=== PATIENT | male | born 1935 | race Caucasian/White ===

== ENCOUNTER 2020-02-27 19:53 | Inpatient (IN) | payer MEDICARE ==
[~2020-02-27] VITALS: Ht 180.3 cm; Wt 74.8 kg
--- NOTE | ~2020-02-27 | CON ---
[address] [address] CONSULTATION Name: DEYVI HILL KYREE Room: [address] IN .R.#: [id number] Admission: 02/27/20 Attend Phys: Zafar Metz MD Discharge: Date of : 39 Report #: [id number] THIS REPORT FOR: //name// cc: Julian Gongora MD, Robert MD ~ THIS REPORT FOR: //name// CC: Zafar Gongora DATE OF SERVICE: 02/29/2020 REQUESTING PHYSICIAN: Dr. Villar. INDICATION FOR CONSULTATION: Pneumonia. HISTORY OF PRESENT ILLNESS: This is an 84-year-old gentleman with past medical history includes a history of coronary artery disease. There is no known history of COPD or congestive heart failure. The patient was recently admitted to [facility] and was treated with antibiotics for pneumonia. I do not have details available. According to the patient, COVID-19 was not detected. The patient was subsequently discharged on oral antibiotics. The patient states that he picked him up at [employer] in [place] and in fact called one of the [facility] in [place] and they did not have a record of these prescriptions; however, they were able to look up a prescription for Zithromax and Augmentin, which [facility] [place] on the . The patient is not known to be previously on supplemental oxygen, now again had a fever up to 102.4 degrees Celsius. He also was short of breath and was coughing, although not bringing up much sputum. Therefore, he was admitted here again through the Emergency Room. He was continuing to complain of fever and chills. There is only mild swelling of lower extremities. The patient is currently requiring 12 liters of oxygen to maintain O2 saturation between 88% to 91%. Note that he is not known to be previously on supplemental oxygen. I asked him 12 other questions for review of systems, the patient answered to the negative except as mentioned above. PAST MEDICAL HISTORY: Coronary artery disease, myocardial infarctions x 2, 7 stents, gastroesophageal reflux disease, hypertension, hyperlipidemia, chronic kidney disease is mentioned on the records. The patient, however, has a normal creatinine, hyperlipidemia. I do not have a previous measure of his left ventricular ejection fraction available at this time. SOCIAL HISTORY: There is no known history of smoking, ethanol abuse or drug abuse. CURRENT MEDICATIONS: [place] [address] CONSULTATION Name: DEYVI HILL KYREE Room: [address]#: [id number] Admission: 02/27/20 Attend Phys: Zafar Metz MD Discharge: Date of : 37 Report #: [id number] HOME MEDICATIONS: Also List in [facility] reviewed. Also as above, the patient was prescribed a Z-SAMREEN as well as Augmentin on the . ALLERGIES: No known drug allergies. FAMILY HISTORY: There is no pertinent family history. PHYSICAL EXAMINATION: GENERAL: He is fully awake; however, is able to provide only a limited history. VITAL SIGNS: He has a pulse of 69 and a blood pressure of 131/57. He is saturating between 91% to 88%. He is on 12 liters nasal cannula and his oxygen is being titrated. His respiratory rate is elevated to 28. He is afebrile now with a temperature of 36.7, however, yesterday, he did have a low-grade fever up to 38.4. HEENT: Head is normocephalic and atraumatic. NECK: Does not show raised JVP, asymmetry, mass or lymph nodes. CHEST: Symmetrical expansion on inspection and palpation. On auscultation, there is some accessory muscle use. He does appear to be short of breath. He has a high respiratory rate. Breath sounds, however, are bilaterally equal, although decreased. I do not hear any added sounds. HEART: Regular. There is no murmur. ABDOMEN: Soft and nontender. EXTREMITIES: Lower extremities show trace edema. There is no calf tenderness. SKIN: Dry and intact. NEUROLOGICAL: Moves all extremities bilaterally equally and spontaneously with no focal deficit identified. LABORATORY DATA: The patient's chest x-ray is reviewed and compared with the chest x-ray performed 2 days ago. There are extensive bilateral atypical looking infiltrates. A second chest x-ray looks worse, likely due to the development of increase in pulmonary vascular congestion on the second chest x-ray. The patient's CTA chest films as well as report are also reviewed. There are no additional pertinent findings. The patient's CBC as well as chemistries are in [facility] reviewed. Potassium was decreased this morning, is reviewed. Coagulation studies from the in [facility] reviewed. Arterial blood gas consistent with acute type 1 respiratory failure in [facility] reviewed. COVID-19 antigen was negative. PCR is pending. Nasal swab for methicillin-resistant Staphylococcus aureus is pending. ASSESSMENT AND PLAN: 1. Acute hypoxemic respiratory failure. The patient does have extensive bilateral infiltrates, which is the etiology of his acute respiratory failure, also a second chest x-ray likely shows some increase in pulmonary vascular congestion as well. At this time, we will continue to titrate his oxygen. We will consider use of a BiPAP, increases in his respiratory status declines. [facility] [address] [address] CONSULTATION Name: DEYVI HILL KYREE Room: [address] IN .R.#: [id number] Admission: 02/27/20 Attend Phys: Zafar Metz MD Discharge: Date of : 39 Report #: [id number] 2. Pulmonary infiltrates/pneumonia as above. The patient is noted to have been prescribed Augmentin and Z-SAMREEN on the , he says he was taking the medications he was prescribed. I am not aware of the medication he received in [place]. Considering this, use of antibiotics and still developed mental or persistence of extensive infiltrates, I decided to go ahead and broaden his antibiotic coverage. He currently is on Zosyn. I added Levaquin and vancomycin. We will follow and will narrow antibiotic coverage as indicated down the line. The patient has limited peripheral IV access. It is possible that he needs central access. 3. Bronchospasm despite a lack of previous history of obstructive lung disease. I feel this is a component of this as well. The patient is on Solu-Medrol as well as nebulized bronchodilators. I will continue the same. 4. Fluid overload. I would like to give him some Lasix; however, would like to replace the potassium first. His potassium is already being replaced. We will go ahead and obtain a basic metabolic profile and see where we stand. If his potassium was returned to the normal range, I intend to give him some Lasix. 5. Evaluation for thromboembolic phenomena. He did not have pulmonary emboli detected on the CTA chest. I will obtain a D-dimer. In case, it is elevated, I will still do venous Dopplers. 6. Gastrointestinal prophylaxis. He is on Protonix. 7. Clostridium difficile prophylaxis. He is on Florastor. 8. Deep vein thrombosis prophylaxis, he is on prophylactic dose of Lovenox. 9. History of coronary artery disease. Thanks for this consultation. By: [id number] [id number] Jean MD /nt
[2020-02-27 19:55] VITALS: BP 143/60
[2020-02-27 20:35] LABS: HEMOGLOBIN 12.3 gm/dL (14.0-18.0); MCH 30.1 pg (26.0-34.0); MCHC 35.3 g/dL (28.0-37.0); MCV 85.4 fL (80.0-100.0); MPV 7.1 fl. (7.2-11.1); NUCLEATED RBCS 0 /100WBC; PLATELET COUNT* 225 thou/uL (150-400); RDW-CV 13.2 % (10.5-14.5); WBC 6.7 thou/uL (4.0-11.0)
[2020-02-27] MEDS ORDERED: LIPITOR 20 MG T20 M1 PO (20:42)
[2020-02-27] MEDS ORDERED: ASA81BEC PO (20:42)
[2020-02-27] MEDS ORDERED: HYDRALAZINE 2525 MG PO (20:43)
[2020-02-27] MEDS ORDERED: PLAVIX 75 MG TA75 MG PO (20:43)
[2020-02-27] MEDS ORDERED: NITROSTAT0.4 M1 SUBLING (20:44)
[2020-02-27] MEDS ORDERED: TOPROL XL50 MG PO (20:44)
[2020-02-27 20:45] LABS: INR 1.1; PROTIME 11.4 Seconds (9.20-11.50)
[2020-02-27] MEDS ORDERED: VITAMIN D31250 MC1 PO (20:45)
[2020-02-27] MEDS ORDERED: ISOSORBIDE MONO30 M1 PO (20:46)
[2020-02-27 20:51] LABS: CALCIUM 7.4 mg/dL (8.5-10.1); CREATININE 1.3 mg/dL (0.6-1.3); POTASSIUM 3.5 mmol/L (3.5-5.1)
[2020-02-27 20:56] LABS: ALBUMIN 2.6 g/dL (3.4-5.0); MAGNESIUM 1.9 mg/dL (1.8-2.4); TOTAL BILIRUBIN 1.4 mg/dL (<0.1-1.0); TOTAL PROTEIN 6.8 g/dL (6.4-8.2)
[2020-02-27 21:00] LABS: ABSOLUTE LYMPHOCYTES 0.3 thou/uL (0.8-5.3); ABSOLUTE MONOCYTES 0.3 thou/uL (0.0-1.2); ABSOLUTE NEUTROPHILS 6.2 thou/uL (1.6-8.1)
[2020-02-27 21:01] LABS: PLATELET ESTIMATE ADEQUATE
[2020-02-27 21:51] LABS: PCO2 31.5 mmHg (35.0-45.0); PO2 79.4 mmHg (75.0-100.0); pH 7.462 (7.340-7.450)
[2020-02-27 22:52] LABS: URINE BILIRUBIN NEGATIVE (Negative); URINE BLOOD TRACE (Negative); URINE CLARITY CLEAR; URINE COLOR YELLOW; URINE GLUCOSE-RANDOM NEGATIVE (Negative); URINE KETONES NEGATIVE (Negative); URINE LEUKOCYTES-REFLEX NEGATIVE (Negative); URINE NITRITE-REFLEX NEGATIVE (Negative); URINE PROTEIN NEGATIVE (Negative); URINE SPECIFIC GRAVITY <= 1.005 (1.005-1.030); URINE UROBILINOGEN 0.2 E.U./dl (0.2-1.0)
[2020-02-27 23:57] VITALS: BP 131/57
[2020-02-28 00:06] VITALS: BP 119/51
[2020-02-28 04:00] VITALS: BP 149/65
[2020-02-28 07:50] VITALS: BP 133/57
[2020-02-28 08:18] LABS: HEMOGLOBIN 12.6 gm/dL (14.0-18.0); MCH 29.8 pg (26.0-34.0); MCHC 34.1 g/dL (28.0-37.0); MCV 87.3 fL (80.0-100.0); RBC 4.24 mil/uL (4.50-6.00); RDW-CV 13.5 % (10.5-14.5); WBC 7.6 thou/uL (4.0-11.0)
[2020-02-28 08:24] LABS: CALCIUM 7.2 mg/dL (8.5-10.1); MAGNESIUM 1.9 mg/dL (1.8-2.4); POTASSIUM 3.4 mmol/L (3.5-5.1)
--- NOTE | 2020-02-28 11:51 | EKG ---
[place] [address] ELECTROCARDIOGRAM REPORT Name: LIZWILLIEAISLINN ADORNO Room: [address] ADM IN ..#: [id number] Admission: 02/27/20 Attend Phys: Zafar Metz, Discharge: Date of : 39 Date of Service: 02/27/201999 Report #: [id number] THIS REPORT FOR: //name// 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[place] : 1935 Requested By: Rosanne Field Order Number: [id number] MD: Elio Kendall Measurements Intervals [place] Rate: 77 P: -64 PA: 242 QRS: -52 QRSD: 120 T: 90 QT: 395 QTc: 448 Interpretive Statements Sinus or ectopic atrial rhythm Prolonged PA interval Probable left ventricular hypertrophy with repolarization changes Anterior Q waves, possibly due to LVH Baseline wander in lead(s) II,III,aVF No previous ECG available for comparison Electronically Signed On 02-28-2020 11:51:32 CDT by Elio Kendall [email or web address] <ELECTRONICALLY SIGNED> By: Elio Kendall MD, FACC 02/28/20 1151 99 99 Elio Kendall MD, FAC /EPI
[2020-02-28 12:00] VITALS: BP 160/63
[2020-02-28 16:00] VITALS: BP 125/48
[2020-02-28 20:00] VITALS: BP 130/65
[2020-02-29] VITALS: BP 126/57
[2020-02-29 04:00] VITALS: BP 122/46
[2020-02-29 05:22] LABS: ABSOLUTE LYMPHOCYTES 0.3 thou/uL (0.8-5.3); ABSOLUTE MONOCYTES 0.2 thou/uL (0.0-1.2); ABSOLUTE NEUTROPHILS 9.9 thou/uL (1.6-8.1); BASOPHILS 0.1 %; HEMATOCRIT 34.1 % (42.0-52.0); HEMOGLOBIN 12.1 gm/dL (14.0-18.0); LYMPHOCYTES 2.5 %; MCH 30.2 pg (26.0-34.0); MCHC 35.5 g/dL (28.0-37.0); MCV 85.2 fL (80.0-100.0); MPV 7.5 fl. (7.2-11.1); NUCLEATED RBCS 0 /100WBC; PLATELET COUNT* 253 thou/uL (150-400); POLYS 95.4 %; RDW-CV 13.4 % (10.5-14.5); WBC 10.4 thou/uL (4.0-11.0)
[2020-02-29 05:36] LABS: CALCIUM 7.1 mg/dL (8.5-10.1); CREATININE 0.9 mg/dL (0.6-1.3); MAGNESIUM 2.1 mg/dL (1.8-2.4)
[2020-02-29 05:42] LABS: POTASSIUM 2.7 mmol/L (3.5-5.1)
[2020-02-29 09:30] VITALS: BP 131/57
[2020-02-29 12:00] VITALS: BP 132/50
[2020-02-29 15:20] LABS: CALCIUM 7.3 mg/dL (8.5-10.1); MAGNESIUM 2.3 mg/dL (1.8-2.4); POTASSIUM 3.2 mmol/L (3.5-5.1)
[2020-02-29 15:43] LABS: APTT 31.5 Seconds (25.0-31.3); INR 1.1; PROTIME 11.3 Seconds (9.20-11.50)
[2020-02-29 16:00] VITALS: BP 125/56
[2020-02-29 20:00] VITALS: BP 120/54
[2020-03-01 00:02] VITALS: BP 127/46
[2020-03-01 04:45] VITALS: BP 130/50
[2020-03-01 05:54] LABS: HEMATOCRIT 36.7 % (42.0-52.0); HEMOGLOBIN 12.6 gm/dL (14.0-18.0); MCH 29.5 pg (26.0-34.0); MCHC 34.3 g/dL (28.0-37.0); MCV 86.2 fL (80.0-100.0); MPV 7.1 fl. (7.2-11.1); RBC 4.26 mil/uL (4.50-6.00); RDW-CV 13.3 % (10.5-14.5); WBC 16.2 thou/uL (4.0-11.0)
[2020-03-01 06:19] LABS: ALBUMIN 2.2 g/dL (3.4-5.0); CALCIUM 7.4 mg/dL (8.5-10.1); CREATININE 1.2 mg/dL (0.6-1.3); POTASSIUM 3.1 mmol/L (3.5-5.1); TOTAL BILIRUBIN 1.5 mg/dL (<0.1-1.0); TOTAL PROTEIN 6.7 g/dL (6.4-8.2)
[2020-03-01 10:58] VITALS: BP 150/68
[2020-03-01 12:00] VITALS: BP 132/57
--- NOTE | 2020-03-01 16:13 | 2DMMODE ---
[place] [address] 2 D/M-MODE ECHOCARDIOGRAM Name: DEYVI HILL [place] Room: [address] IN [facility]#: [id number] Admission: 02/27/20 Attend Phys: Zafar Metz, Discharge: Date of : 39 Date of Service: 03/01/20 1613 Report #: [id number] THIS REPORT FOR: cc: Julian Gongora MD, Robert MD Liston, Michael J. MD [facility] ~ APPROVED REPORT Study performed: 03/01/2020 13:52:54 EXAM: Comprehensive 2D, Doppler, and color-flow Echocardiogram Patient Location: In-Patient Room #: 200 Status: routine BSA: 1.93 HR: 74 bpm BP: 132/57 mmHg Rhythm: NSR Other Information Study Quality: Good Indications Dyspnea 2D Dimensions IVSd: 9.38 (7-11mm) LVOT Diam: 19.12 (18-24mm) LVDd: 46.52 mm PWd: 8.96 (7-11mm) Ascending Ao: 32.08 (22-36mm) LVDs: 26.53 (25-40mm) Aortic Root: 34.81 mm Volumes Left Atrial Volume (Systole) LA ESV Index: 29.80 mL/m2 Aortic Valve AoV Peak Dave.: 1.55 m/s AO Peak Gr.: 9.64 mmHg LVOT Max P.66 mmHg AO Mean Gr.: 5.00 mmHg LVOT Mean P.57 mmHg LVOT Max V: 1.38 m/s AO V2 VTI: 34.65 cm LVOT Mean V: 0.86 m/s GLORIA (VTI): 2.85 cm2 LVOT V1 VTI: 34.38 [place] [address] 2 D/M-MODE ECHOCARDIOGRAM Name: DEYVI HILL [place] Room: [address] IN ..#: [id number] Admission: 02/27/20 Attend Phys: Zafar Metz, Discharge: Date of : 39 Date of Service: 03/01/20 1613 Report #: [id number] Mitral Valve E/A Ratio: 0.99 MV Decel. Time: 167.98 ms MV E Max Dave.: 1.11 m/s MV PHT: 48.71 ms MVA (PHT): 4.52 cm2 TDI E/Lateral E': 12.33 E/Medial E': 11.10 Medial E' Dave.: 0.10 m/s Lateral E' Dave.: 0.09 m/s Pulmonary Valve PV Peak Dave.: 1.10 m/s PV Peak Gr.: 4.87 mmHg Tricuspid Valve RAP Estimate: 5.00 mmHg TR Peak Gr.: 40.39 mmHg RVSP: 45.00 mmHg PA Pressure: 45.00 mmHg Left Ventricle The left ventricle is normal size. There is normal LV segmental wall motion. There is normal left ventricular wall thickness. Left ventricular systolic function is normal. LVEF is 60-65%. Transmitral Doppler flow pattern suggests impaired LV relaxation. Right Ventricle The right ventricle is normal size. The right ventricular systolic function is normal. Atria Left atrium is mildly dilated. Right atrium is mildly dilated. Aortic Valve The aortic valve is normal in structure. No aortic regurgitation is present. There is no aortic valvular stenosis. Mitral Valve The mitral valve is normal in structure. Mild mitral regurgitation. No evidence of mitral valve stenosis. Tricuspid Valve The tricuspid valve is normal in structure. Mild tricuspid regurgitation. The RVSP is 45-[place] [address] 2 D/M-MODE ECHOCARDIOGRAM Name: DEYVI HILL [place] Room: [address]#: [id number] Admission: 02/27/20 Attend Phys: Zafar Metz, Discharge: Date of : 39 Date of Service: 03/01/20 1613 Report #: [id number] Pulmonic Valve The pulmonary valve is normal in structure. Trace pulmonic regurgitation. Great Vessels The aortic root is normal in size. IVC is not visualized. Pericardium There is no pericardial effusion. <Conclusion> The left ventricle is normal size. There is normal left ventricular wall thickness. Left ventricular systolic function is normal. LVEF is 60-65%. Transmitral Doppler flow pattern suggests impaired LV relaxation. Left atrium is mildly dilated. Right atrium is mildly dilated. Mild mitral regurgitation. Mild tricuspid regurgitation. The RVSP is 45-50 mmHg. <ELECTRONICALLY SIGNED> By: Romaine Raya MD, FACC 03/01/20 1613 1613 1613 Romaine Raya MD, FACC /INF
[2020-03-01 17:06] LABS: CALCIUM 7.4 mg/dL (8.5-10.1); POTASSIUM 3.4 mmol/L (3.5-5.1)
[2020-03-01 17:27] VITALS: BP 119/59
[2020-03-01 20:00] VITALS: BP 142/74
[2020-03-02] VITALS: BP 134/62
[2020-03-02 04:00] VITALS: BP 139/62
[2020-03-02 05:34] LABS: HEMATOCRIT 34.6 % (42.0-52.0); HEMOGLOBIN 12.3 gm/dL (14.0-18.0); MCH 30.4 pg (26.0-34.0); MCHC 35.7 g/dL (28.0-37.0); MCV 85.2 fL (80.0-100.0); MPV 6.9 fl. (7.2-11.1); NUCLEATED RBCS 0 /100WBC; PLATELET COUNT* 305 thou/uL (150-400); RBC 4.06 mil/uL (4.50-6.00); RDW-CV 13.2 % (10.5-14.5); WBC 10.1 thou/uL (4.0-11.0)
[2020-03-02 06:24] LABS: ALBUMIN 2.4 g/dL (3.4-5.0); CALCIUM 7.4 mg/dL (8.5-10.1); CREATININE 1.2 mg/dL (0.6-1.3); MAGNESIUM 2.1 mg/dL (1.8-2.4); POTASSIUM 3.6 mmol/L (3.5-5.1); TOTAL BILIRUBIN 1.6 mg/dL (<0.1-1.0)
[2020-03-02 07:14] LABS: ABSOLUTE LYMPHOCYTES 0.1 thou/uL (0.8-5.3); ABSOLUTE MONOCYTES 0.4 thou/uL (0.0-1.2); ABSOLUTE NEUTROPHILS 9.6 thou/uL (1.6-8.1); ANISOCYTOSIS 1+; PLATELET ESTIMATE ADEQUATE; POIKILOCYTOSIS 1+
[2020-03-02 08:00] VITALS: BP 130/70
[2020-03-02 12:00] VITALS: BP 122/57
[2020-03-02 16:00] VITALS: BP 139/63
[2020-03-02 19:50] VITALS: BP 138/77
[2020-03-03] VITALS: BP 123/62
[2020-03-03 04:04] VITALS: BP 157/63
[2020-03-03 05:09] LABS: ABSOLUTE LYMPHOCYTES 0.4 thou/uL (0.8-5.3); ABSOLUTE MONOCYTES 0.5 thou/uL (0.0-1.2); ABSOLUTE NEUTROPHILS 7.8 thou/uL (1.6-8.1); HEMATOCRIT 36.2 % (42.0-52.0); HEMOGLOBIN 12.7 gm/dL (14.0-18.0); LYMPHOCYTES 4.1 %; MCHC 35.1 g/dL (28.0-37.0); MCV 85.3 fL (80.0-100.0); MPV 7.1 fl. (7.2-11.1); NUCLEATED RBCS 0 /100WBC; PLATELET COUNT* 311 thou/uL (150-400); POLYS 89.9 %; RBC 4.24 mil/uL (4.50-6.00); WBC 8.6 thou/uL (4.0-11.0)
[2020-03-03 05:51] LABS: ALBUMIN 2.3 g/dL (3.4-5.0); CALCIUM 7.5 mg/dL (8.5-10.1); MAGNESIUM 2.4 mg/dL (1.8-2.4); POTASSIUM 3.6 mmol/L (3.5-5.1); TOTAL BILIRUBIN 1.4 mg/dL (<0.1-1.0); TOTAL PROTEIN 6.6 g/dL (6.4-8.2)
[2020-03-03 08:00] VITALS: BP 141/63
[2020-03-03 13:17] VITALS: BP 127/88
[2020-03-03 17:16] VITALS: BP 111/48
[2020-03-03 19:50] VITALS: BP 143/72
[2020-03-04] VITALS: BP 114/78
[2020-03-04 04:00] VITALS: BP 141/67
[2020-03-04 08:00] VITALS: BP 146/72
[2020-03-04 13:20] LABS: ABSOLUTE LYMPHOCYTES 0.6 thou/uL (0.8-5.3); ABSOLUTE MONOCYTES 0.4 thou/uL (0.0-1.2); ABSOLUTE NEUTROPHILS 6.6 thou/uL (1.6-8.1); BASOPHILS 0.1 %; EOSINOPHILS 0.1 %; HEMATOCRIT 38.1 % (42.0-52.0); MCH 29.5 pg (26.0-34.0); MCHC 34.1 g/dL (28.0-37.0); MCV 86.4 fL (80.0-100.0); MONOCYTES 5.6 %; MPV 8.2 fl. (7.2-11.1); NUCLEATED RBCS 0 /100WBC; PLATELET COUNT* 338 thou/uL (150-400); POLYS 86.2 %; RBC 4.42 mil/uL (4.50-6.00); WBC 7.6 thou/uL (4.0-11.0)
[2020-03-04 13:23] LABS: CALCIUM 7.5 mg/dL (8.5-10.1); MAGNESIUM 2.3 mg/dL (1.8-2.4); POTASSIUM 3.3 mmol/L (3.5-5.1)
[2020-03-04 13:59] VITALS: BP 130/72
[2020-03-04 17:00] VITALS: BP 144/69
[2020-03-04 20:00] VITALS: BP 134/76
[2020-03-05] VITALS (7 sets, daily range): BP systolic 100–162; BP diastolic 59–76
[2020-03-05 04:45] LABS: HEMATOCRIT 38.1 % (42.0-52.0); HEMOGLOBIN 13.1 gm/dL (14.0-18.0); MCH 29.7 pg (26.0-34.0); MCHC 34.3 g/dL (28.0-37.0); MCV 86.4 fL (80.0-100.0); MPV 7.1 fl. (7.2-11.1); NUCLEATED RBCS 0 /100WBC; PLATELET COUNT* 336 thou/uL (150-400); RBC 4.41 mil/uL (4.50-6.00); WBC 8.1 thou/uL (4.0-11.0)
[2020-03-05 06:03] LABS: ALBUMIN 2.5 g/dL (3.4-5.0); CALCIUM 7.8 mg/dL (8.5-10.1); CREATININE 1.1 mg/dL (0.6-1.3); MAGNESIUM 2.2 mg/dL (1.8-2.4); TOTAL BILIRUBIN 1.3 mg/dL (<0.1-1.0); TOTAL PROTEIN 6.3 g/dL (6.4-8.2)
[2020-03-05 07:46] LABS: ABSOLUTE EOSINOPHILS 0.1 thou/uL (0.0-0.7); ABSOLUTE LYMPHOCYTES 0.6 thou/uL (0.8-5.3); ABSOLUTE MONOCYTES 0.3 thou/uL (0.0-1.2); METAMYELOCYTES 2 %
[2020-03-05 07:49] LABS: PLATELET ESTIMATE ADEQUATE
[2020-03-06 00:25] VITALS: BP 128/75
[2020-03-06 04:30] VITALS: BP 180/60
[2020-03-06 05:00] VITALS: BP 150/63
[2020-03-06 08:30] VITALS: BP 126/65
[2020-03-06 12:00] VITALS: BP 116/60
[2020-03-06 20:00] VITALS: BP 127/67
[2020-03-07] VITALS: BP 126/61
[2020-03-07 04:02] VITALS: BP 146/68
[2020-03-07 05:57] LABS: HEMATOCRIT 38.8 % (42.0-52.0); HEMOGLOBIN 13.3 gm/dL (14.0-18.0); MCH 29.6 pg (26.0-34.0); MCHC 34.4 g/dL (28.0-37.0); MCV 86.1 fL (80.0-100.0); MPV 6.9 fl. (7.2-11.1); RBC 4.5 mil/uL (4.50-6.00); RDW-CV 12.9 % (10.5-14.5); WBC 8.6 thou/uL (4.0-11.0)
[2020-03-07 06:02] LABS: CALCIUM 7.7 mg/dL (8.5-10.1); POTASSIUM 3.9 mmol/L (3.5-5.1)
[2020-03-07 08:00] VITALS: BP 147/60
[2020-03-07 12:00] VITALS: BP 121/66
[2020-03-07 15:30] VITALS: BP 124/70
[2020-03-07 20:00] VITALS: BP 134/68
[2020-03-08] VITALS (7 sets, daily range): BP systolic 111–137; BP diastolic 60–71
[2020-03-08] MEDS ORDERED: ALBUTEROL2.5 MG/0.5 INH (09:30)
[2020-03-08] MEDS ORDERED: MUCINEX600 MG PO (09:30)
[2020-03-08] MEDS ORDERED: LEVAQUIN 500 M500 M1 PO (09:30)
[2020-03-08] MEDS ORDERED: FLORASTOR250 MG PO (09:30)
[2020-03-08] MEDS ORDERED: PREDNISONE 20 M20 MG PO (09:30)
== END 2020-03-08 15:16 | DRG 871 ==
LOC: M.ERS 19:53 → M.TBA-ER 21:01 → M.2W 21:01
PROVIDERS: Emergency Medicine; Family Medicine; Internal Medicine; Internal Medicine Critical Care Medicine; ADMIT Internal Medicine; ATTEND Internal Medicine
PROC: 5A09357 Assistance with Respiratory Ventilation, Less than 24 Consecutive Hours, Continuous Positive Airway Pressure (ICD-10-PCS; principal; 2020-03-01)
PROC: 02HV33Z Insertion of Infusion Device into Superior Vena Cava, Percutaneous Approach (ICD-10-PCS; 2020-03-02)
PROC: 5A09357 Assistance with Respiratory Ventilation, Less than 24 Consecutive Hours, Continuous Positive Airway Pressure (ICD-10-PCS; 2020-03-03)
PROC: 5A09357 Assistance with Respiratory Ventilation, Less than 24 Consecutive Hours, Continuous Positive Airway Pressure (ICD-10-PCS; 2020-03-04)
PROC: 5A09357 Assistance with Respiratory Ventilation, Less than 24 Consecutive Hours, Continuous Positive Airway Pressure (ICD-10-PCS; 2020-03-05)
PROC: 5A09357 Assistance with Respiratory Ventilation, Less than 24 Consecutive Hours, Continuous Positive Airway Pressure (ICD-10-PCS; 2020-03-06)
DX: A41.50 Gram-negative sepsis, unspecified (principal); J96.01 Acute respiratory failure with hypoxia; J15.6 Pneumonia due to other Gram-negative bacteria; I50.33 Acute on chronic diastolic (congestive) heart failure; E44.0 Moderate protein-calorie malnutrition; Z16.39 Resistance to other specified antimicrobial drug; I13.0 Hypertensive heart and chronic kidney disease with heart failure and stage 1 through stage 4 chronic kidney disease, or unspecified chronic kidney disease; I25.10 Atherosclerotic heart disease of native coronary artery without angina pectoris; K21.9 Gastro-esophageal reflux disease without esophagitis; N18.2 Chronic kidney disease, stage 2 (mild); E78.5 Hyperlipidemia, unspecified; E87.70 Fluid overload, unspecified; I27.20 Pulmonary hypertension, unspecified; E87.6 Hypokalemia; Z20.828 Contact with and (suspected) exposure to other viral communicable diseases; Z68.23 Body mass index [BMI] 23.0-23.9, adult; I25.2 Old myocardial infarction; Z95.5 Presence of coronary angioplasty implant and graft; Z79.82 Long term (current) use of aspirin; Z79.01 Long term (current) use of anticoagulants; Z79.899 Other long term (current) drug therapy

== ENCOUNTER 2020-03-08 14:26 | Inpatient (IN) | payer MEDICARE ==
[~2020-03-08] VITALS: Ht 180.3 cm; Wt 66.5 kg
[~2020-03-08 14:26] MED LIST: ALBUTEROL2.5 MG/0.5 INH; ASA81BEC PO; FLORASTOR250 MG PO; HYDRALAZINE 2525 MG PO; ISOSORBIDE MONO30 M1 PO; LEVAQUIN 500 M500 M1 PO; LIPITOR 20 MG T20 M1 PO; MUCINEX600 MG PO; NITROSTAT0.4 M1 SUBLING; PLAVIX 75 MG TA75 MG PO; PREDNISONE 20 M20 MG PO; TOPROL XL50 MG PO; VITAMIN D31250 MC1 PO
[2020-03-08 15:15] VITALS: BP 138/70
[2020-03-08 19:00] VITALS: BP 133/69
[2020-03-09 04:49] LABS: HEMATOCRIT 38.2 % (42.0-52.0); HEMOGLOBIN 13.3 gm/dL (14.0-18.0); MCH 29.8 pg (26.0-34.0); MCHC 34.9 g/dL (28.0-37.0); MCV 85.5 fL (80.0-100.0); MPV 7.2 fl. (7.2-11.1); RBC 4.47 mil/uL (4.50-6.00); RDW-CV 13.2 % (10.5-14.5); WBC 8.2 thou/uL (4.0-11.0)
[2020-03-09 05:02] LABS: POTASSIUM 3.7 mmol/L (3.5-5.1)
[2020-03-09 08:00] VITALS: BP 145/68
[2020-03-09 19:30] VITALS: BP 140/67
[2020-03-10 08:00] VITALS: BP 131/66
[2020-03-10 19:45] VITALS: BP 124/62
[2020-03-11 07:30] VITALS: BP 109/56
[2020-03-11 20:00] VITALS: BP 117/57
[2020-03-12 07:30] VITALS: BP 110/58
[2020-03-12 07:49] VITALS: BP 110/58
[2020-03-12 11:02] LABS: URINE BILIRUBIN NEGATIVE (Negative); URINE BLOOD TRACE (Negative); URINE CLARITY CLEAR; URINE COLOR YELLOW; URINE GLUCOSE-RANDOM NEGATIVE (Negative); URINE KETONES NEGATIVE (Negative); URINE LEUKOCYTES-REFLEX NEGATIVE (Negative); URINE NITRITE-REFLEX NEGATIVE (Negative); URINE PROTEIN NEGATIVE (Negative); URINE UROBILINOGEN 0.2 E.U./dl (0.2-1.0)
[2020-03-12 20:00] VITALS: BP 111/54
[2020-03-13 07:30] VITALS: BP 128/65
[2020-03-13 19:21] VITALS: BP 109/47
[2020-03-14 08:00] VITALS: BP 124/62
[2020-03-14 20:00] VITALS: BP 109/50
[2020-03-15 04:37] LABS: HEMATOCRIT 37.1 % (42.0-52.0); HEMOGLOBIN 12.9 gm/dL (14.0-18.0); MCH 30.5 pg (26.0-34.0); MCHC 34.9 g/dL (28.0-37.0); MCV 87.3 fL (80.0-100.0); MPV 7.5 fl. (7.2-11.1); RBC 4.25 mil/uL (4.50-6.00); RDW-CV 13.6 % (10.5-14.5); WBC 8.5 thou/uL (4.0-11.0)
[2020-03-15 05:18] LABS: CALCIUM 7.4 mg/dL (8.5-10.1); POTASSIUM 3.3 mmol/L (3.5-5.1)
[2020-03-15 07:30] VITALS: BP 99/54
[2020-03-15 08:51] VITALS: BP 113/59
[2020-03-15 20:00] VITALS: BP 116/61
[2020-03-16 08:00] VITALS: BP 113/56
[2020-03-16 19:55] VITALS: BP 100/59
[2020-03-17 04:02] LABS: MCH 30.2 pg (26.0-34.0); MCHC 34.2 g/dL (28.0-37.0); MCV 88.3 fL (80.0-100.0); MPV 7.4 fl. (7.2-11.1); RBC 4.3 mil/uL (4.50-6.00); RDW-CV 13.8 % (10.5-14.5); WBC 6.6 thou/uL (4.0-11.0)
[2020-03-17 04:08] LABS: CALCIUM 7.5 mg/dL (8.5-10.1); POTASSIUM 3.8 mmol/L (3.5-5.1)
[2020-03-17 08:00] VITALS: BP 115/60
[2020-03-17] MEDS ORDERED: FLORASTOR250 MG PO (11:55)
[2020-03-17] MEDS ORDERED: PREDNISONE 20 M20 MG PO (11:55)
[2020-03-17] MEDS ORDERED: MUCINEX600 MG PO (11:55)
[2020-03-17] MEDS ORDERED: ALBUTEROL2.5 MG/0.5 INH (11:55)
[2020-03-17] MEDS ORDERED: NEBULIZER MISCELL (11:55)
[2020-03-17 19:55] VITALS: BP 106/52
[2020-03-18 08:26] VITALS: BP 123/66
[2020-03-18 11:36] VITALS: BP 123/66
[2020-03-18] MEDS ORDERED: PREDNISONE 5 MG5 M1 PO (12:58)
== END 2020-03-18 13:36 | disposition home or self-care (01) | DRG 947 ==
LOC: M.REH 14:26
PROVIDERS: Internal Medicine; ADMIT Physical Medicine & Rehabilitation; ATTEND Physical Medicine & Rehabilitation
DX: R53.81 Other malaise (principal); J96.01 Acute respiratory failure with hypoxia; J18.9 Pneumonia, unspecified organism; E44.0 Moderate protein-calorie malnutrition; I12.9 Hypertensive chronic kidney disease with stage 1 through stage 4 chronic kidney disease, or unspecified chronic kidney disease; N18.2 Chronic kidney disease, stage 2 (mild); E78.5 Hyperlipidemia, unspecified; I25.10 Atherosclerotic heart disease of native coronary artery without angina pectoris; I25.2 Old myocardial infarction; K21.9 Gastro-esophageal reflux disease without esophagitis; Z87.891 Personal history of nicotine dependence; Z68.20 Body mass index [BMI] 20.0-20.9, adult; Z95.5 Presence of coronary angioplasty implant and graft; Z79.82 Long term (current) use of aspirin; Z79.899 Other long term (current) drug therapy

== ENCOUNTER → 2020-04-13 | Outpatient (CLI) | payer MEDICARE ==
[~2020-04-13] MED LIST changes: +NEBULIZER MISCELL; +PREDNISONE 5 MG5 M1 PO
== END ==
LOC: M.RAD 08:29
PROVIDERS: ATTEND Internal Medicine
DX: Z09 Encounter for follow-up examination after completed treatment for conditions other than malignant neoplasm (principal)